=== PATIENT | female | born 1990 | race Caucasian/White ===

== ENCOUNTER 2019-01-16 18:05 | Emergency (ER) | payer OTHER ==
[~2019-01-16] VITALS: Ht 160 cm; Wt 60.5 kg
[2019-01-16 18:10] VITALS: Ht 160 cm; Wt 60.5 kg
[2019-01-16 21:28] LABS: APPEARANCE HAZY (CLEAR); BILIRUBIN NEGATIVE (NEGATIVE); COLOR YELLOW (YELLOW); GLUCOSE NEGATIVE (NEGATIVE); KETONE NEGATIVE (NEGATIVE); NITRITE NEGATIVE (NEGATIVE); PROTEIN NEGATIVE (NEGATIVE); UROBILINOGEN NORMAL (NORMAL)
[2019-01-16 21:31] LABS: WHITE CELLS - URINE >50 /hpf (NEGATIVE)
[2019-01-16 21:33] LABS: BACTERIA MANY /hpf (NEGATIVE); EPITHELIAL CELLS 0-5 /hpf (0-5); RED CELLS - URINE 0-5 /hpf (0-5)
[2019-01-16 21:34] LABS: MUCUS <1+ /lpf (NONE SEEN)
[2019-01-16] MEDS ORDERED: MACROBID100 MG PO (22:24)
[2019-01-16] MEDS ORDERED: DIFLUCAN150 MG PO (22:24)
[2019-01-16 22:51] VITALS: BP 112/63
== END 2019-01-16 22:52 | disposition home or self-care (01) ==
LOC: D.ER 18:05
PROVIDERS: Family Medicine
DX: N89.8 Other specified noninflammatory disorders of vagina (principal); N39.0 Urinary tract infection, site not specified; B37.9 Candidiasis, unspecified